=== PATIENT | female | born 1990 | race Caucasian/White ===

== ENCOUNTER → 2020-07-02 | Outpatient (CLI) | payer OTHER ==
[~2020-07-02] MED LIST: COLACE 100MG C100 MG PO; HYDROCODON-ACE1 EAC6 PO; IBUPROFEN600 MG PO; IBUPROFEN800 MG PO; OMNICEF 300 MG300 MG PO
[2020-07-02 13:32] LABS: RED BLOOD COUNT 3.9 M/UL (4.00-5.10)
== END ==
LOC: GENOP 12:47
PROVIDERS: Obstetrics & Gynecology
DX: Z01.812 Encounter for preprocedural laboratory examination (principal)
CPT/HCPCS: 36415; 81001; 85025

== ENCOUNTER 2020-07-03 07:33 | Inpatient (IN) | payer OTHER ==
[~2020-07-03] VITALS: Ht 154.9 cm; Wt 64.9 kg
[2020-07-03] MEDS ORDERED: IBUPROFEN600 MG PO (10:04)
[2020-07-03] MEDS ORDERED: COLACE 100MG C100 MG PO (10:04)
[2020-07-03] MEDS ORDERED: HYDROCODON-ACE1 EAC6 PO (10:04)
[2020-07-04 05:40] LABS: HEMOGLOBIN 10.1 gm/dl (12.3-15.3)
== END 2020-07-05 13:55 | disposition home or self-care (01) | DRG 788 ==
LOC: GENOP 07:33 → OB 07:54
PROVIDERS: ADMIT Obstetrics & Gynecology
PROC: 10D00Z1 Extraction of Products of Conception, Low, Open Approach (ICD-10-PCS; 2020-07-03)
PROC: 4A1HX4Z Monitoring of Products of Conception, Cardiac Electrical Activity, External Approach (ICD-10-PCS; principal; 2020-07-03 10:17)
DX: O34.211 Maternal care for low transverse scar from previous cesarean delivery (principal); K21.9 Gastro-esophageal reflux disease without esophagitis; O99.613 Diseases of the digestive system complicating pregnancy, third trimester; N85.8 Other specified noninflammatory disorders of uterus; Z3A.39 39 weeks gestation of pregnancy; Z37.0 Single live birth; Z80.49 Family history of malignant neoplasm of other genital organs; Z83.3 Family history of diabetes mellitus; Z82.49 Family history of ischemic heart disease and other diseases of the circulatory system; Z87.09 Personal history of other diseases of the respiratory system
CPT/HCPCS: 36415; 81001; 82800; 85014; 85018; 85025; 90715; 94760; C9113; J0690; J1885; J2274; J2405; J2590; J3010; J7120

== ENCOUNTER 2020-08-26 14:13 | Emergency (ER) | payer OTHER ==
[~2020-08-26 14:13] MED LIST changes: -IBUPROFEN800 MG PO; -OMNICEF 300 MG300 MG PO
[2020-08-26 17:17] LABS: HEMOGLOBIN 13.3 gm/dl (12.3-15.3); RED BLOOD COUNT 4.43 M/UL (4.00-5.10); WHITE BLOOD COUNT 8.7 K/UL (4.5-11.0)
[2020-08-26 17:45] LABS: BUN/CREATININE RATIO 17 (0-10)
[2020-08-26] MEDS ORDERED: IBUPROFEN800 MG PO (18:49)
[2020-08-26] MEDS ORDERED: OMNICEF 300 MG300 MG PO (18:49)
== END 2020-08-26 19:18 | disposition home or self-care (01) ==
LOC: ER1 14:13
PROVIDERS: Physician Assistant
DX: N39.0 Urinary tract infection, site not specified (principal)
CPT/HCPCS: 71045; 80053; 81001; 83605; 84703; 85025; 87040; 87077; 87086; 87186; 96374; 99284; J0696